=== PATIENT | male | born 1980 | race Caucasian/White ===

== ENCOUNTER 2022-01-22 23:40 | Emergency (ER) | payer MEDICAID ==
[~2022-01-22] VITALS: Ht 170.2 cm; Wt 108.9 kg
[2022-01-22 23:50] VITALS: BP_SYST 120
[2022-01-23 01:10] VITALS: BP_SYST 127
== END 2022-01-23 01:10 | disposition home or self-care (01) ==
LOC: SED 23:40
DX: S81.852A Open bite, left lower leg, initial encounter (principal); W54.0XXA Bitten by dog, initial encounter; Y93.89 Activity, other specified; Y92.89 Other specified places as the place of occurrence of the external cause; Y99.8 Other external cause status
CPT/HCPCS: 99281